=== PATIENT | male | born 2000 | race Caucasian/White ===

== ENCOUNTER 2018-07-31 17:52 | Emergency (ER) | payer OTHER ==
[2018-07-31] MEDS ORDERED: Ibuprofen 800 MG TAB ONE (18:15)
[2018-07-31] MEDS ORDERED: HYDROcodone/Acetaminophen 5/325 mg Tablet ONE (19:01)
--- NOTE | 2018-07-31 19:51 | RAD ---
FOUR VIEWS LEFT ELBOW: Date: 07-31-18 Comparison: None. History: Injury, trauma, pain. FINDINGS: No elbow joint effusion, displaced fracture, or evidence of dislocation. IMPRESSION: No acute findings. POS: [facility]
--- NOTE | 2018-07-31 20:24 | CT ---
CT OF CERVICAL SPINE 07/31/18 COMPARISON: None. HISTORY: Injury, trauma, pain. TECHNIQUE: Axial CT imaging at 2.5 mm intervals through the cervical spine with coronal and sagittal reformatted imaging. FINDINGS: The C1 ring is intact. The occipital condyles, the dens, and the C1-2 articulation appear within normal limits. The craniocervical junction and cervicothoracic junction appear normal. Cervical vertebral body heigh t and alignment normal with no prevertebral soft tissue swelling seen. Imaged lung apices unremarkable. No acute fracture or evidence of dislocation. IMPRESSION: No acute osseous abnormality. POS: [facility]
== END 2018-07-31 19:23 | disposition home or self-care (01) ==
LOC: ERS 17:52
DX: M79.602 Pain in left arm (principal); K21.9 Gastro-esophageal reflux disease without esophagitis; F41.9 Anxiety disorder, unspecified; Z79.899 Other long term (current) drug therapy; V49.9XXA Car occupant (driver) (passenger) injured in unspecified traffic accident, initial encounter
CPT/HCPCS: 72125